=== PATIENT | female | born 1950 | race Two or more races ===

== ENCOUNTER 2024-11-10 06:40 | Day surgery (SDC) | payer MEDICARE, SELFPAY ==
[2024-11-09 10:49] VITALS: BMI 24.3
[2024-11-10] VITALS (13 sets, daily range): BP systolic 139–199; BP diastolic 78–121; PULSE 75–88; RESP 14–19; TEMP 36.3–36.8; O2SAT 94–97; BMI 23.3
[2024-11-10] MEDS: SODIUM CHLORIDE 0.9% 500 ML 500 ML 20 ML IV (07:27)
[2024-11-10] MEDS: MIDAZOLAM INJ 1 MG/ML VIAL 2 ML (ASD USE ONLY) 2 MG IVP (07:28)
[2024-11-10] MEDS: fentaNYL CIT INJ 50 mCg/ML AMP 2ML (ASD USE ONLY) IVP (07:34)
--- NOTE | 2024-11-10 08:45 | SUR.PHASEII ---
0835 Pt more awake and alert. Via Turkish speaker-pt denies pain or N/V. Abd softer-pt cont to pass flatus. Sheryl PO fluids. 0845 Pt assessment unchanged. No complaints. Amb with steady git. Able to dress self. Pt and given dc instructions, via cotton farmworker-both state understanding. Pt meets dc criteria-to home.
== END 2024-11-10 08:46 | disposition home or self-care (01) ==
PROVIDERS: PCP Family Medicine; Referring Provider Surgery; Visit Provider Surgery
PROC: 0DBE8ZX Excision of Large Intestine, Via Natural or Artificial Opening Endoscopic, Diagnostic (ICD-10-PCS; CPT 45380; principal; 2024-11-10 07:30)
DX: Z12.11 Encounter for screening for malignant neoplasm of colon (principal); D12.0 Benign neoplasm of cecum; K64.1 Second degree hemorrhoids; K62.89 Other specified diseases of anus and rectum; D12.4 Benign neoplasm of descending colon; K57.30 Diverticulosis of large intestine without perforation or abscess without bleeding; E11.9 Type 2 diabetes mellitus without complications; Z12.12 Encounter for screening for malignant neoplasm of rectum; I10 Essential (primary) hypertension
CPT/HCPCS: 45385; 45380; J1200; J2250; J3010; J7999